=== PATIENT | male | born 1965 | race American Indian/Alaskan Native ===

== ENCOUNTER 2018-07-24 10:59 | Emergency (ER) | payer MEDICAID ==
[2018-07-24 11:03] VITALS: BMI 25.7
[2018-07-24 11:05] VITALS: O2SAT 100
--- NOTE | 2018-07-24 12:19 | CT ---
Date of service: 07/24/2018 PROCEDURE: CT HEAD WITHOUT CONTRAST. HISTORY: seizure activity COMPARISON: None available. TECHNIQUE: Axial computed tomography images were obtained through the head/brain without intravenous contrast. Radiation dose: Total exam DLP = 764.21 mGy-cm. This CT exam was performed using one or more of the following dose reduction techniques: Automated exposure control, adjustment of the mA and/or kV according to patient size, and/or use of iterative reconstruction technique. FINDINGS: HEMORRHAGE: No intracranial hemorrhage. BRAIN: No mass effect or edema. Mild ventricular dilatation. 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 Mild atrophy. VENTRICLES: Unremarkable. No hydrocephalus. CALVARIUM: Unremarkable. PARANASAL SINUSES: Unremarkable as visualized. No significant inflammatory changes. MASTOID AIR CELLS: Unremarkable as visualized. No inflammatory changes. OTHER FINDINGS: None. IMPRESSION: Mild ventricular dilatation. 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 Mild atrophy. No acute hemorrhage.
--- NOTE | 2018-07-24 12:48 | CARD ---
APPROVED REPORT Date of service: 07/24/2018 EKG Measurement Heart [id number] <Conclusion> Normal sinus rhythm Minimal voltage criteria for LVH, may be normal variant Borderline ECG
--- NOTE | 2018-07-24 13:05 | ED PDOC ---
HPI: Seizure Time Seen by Provider: 07/24/18 11:16 Chief Complaint (Nursing): Seizure Chief Complaint (Provider): Seizure History Per: Patient History/Exam Limitations: no limitations Recent Seizure Activity Began: Just Before Arrival Length Of Seizures (Duration): Unknown Quality Of Seizure: Generalized Associated Symptoms: denies: Bit Tongue, Incontinence Of Urine, Incontinence Of Stool, Injury As A Result Of Seizure Activity Additional Complaint(s): 52yo male, brought to ER by police for evaluation due to seizure like activity. Per patient, her remembers "shaking" and his girlfriend told him it "looked like siezures." Patient states he is able to recollect the "shaking" and denies any post-ictal period; also denies any bowel/bladder incontinence or tongue bite. Patient does state he has a history of multiple strokes and states after the last stroke, he had residual right arm weakness. He also admits to heroin and alcohol abuse. Patient states he is unsure if someone called 911 (patient arrived accompanied by police not EMS). No additional complaints. NIHSS Stroke Scale - Date/Time Evaluation Performed Date Performed: 07/24/18 Time Performed: 11:16 When Was NIHSS Performed: Baseline - How Severe is the Stroke Level of Consciousness: 0=Alert LOC to Questions: 0=Both comments correct LOC to commands: 0=Obeys both correctly Best Gaze: 0=Normal Visual: 0=No visual loss Facial: 0=Normal Motor Arm - Left: 0=No drift Motor Arm - Right: 0=No drift Motor Leg - Left: 0=No drift Motor Leg - Right: 0=No drift Limb Ataxia: 0=Absent Sensory: 0=Normal Best Language: 0=No aphasia Dysarthia: 0=Normal articulation Extinction & Inattention (Neglect): 0=Normal, no object Score: 0 Past Medical History Reviewed: Historical Data, Nursing Documentation, Vital Signs Vital Signs: Last Vital Signs Temp 98.1 F 07/24/18 11:03 Pulse 84 07/24/18 11:03 Resp 17 07/24/18 11:03 BP 183/113 H 07/24/18 11:03 Pulse Ox 100 07/24/18 11:03 - Medical History PMH: COPD, HTN, TIA - Surgical History Surgical History: No Surg Hx - Family History Family History: States: No Known Family Hx - Social History Current smoker - smoking cessation education provided: No Alcohol: Other (hx of alcohol abuse) Drugs: Opiates - Allergies Allergies/Adverse Reactions: Allergies Allergy/AdvReac Type Severity Reaction Status Date / Time No Known Allergies Allergy Verified 07/24/18 11:21 Review of Systems ROS Statement: Except As Marked, All Systems Reviewed And Found Negative Constitutional: Negative for: Fever, Chills Cardiovascular: Negative for: Chest Pain Respiratory: Negative for: Shortness of Breath Genitourinary Male: Negative for: Incontinence Neurological: Positive for: Seizures Physical Exam - Reviewed Nursing Documentation Reviewed: Yes Vital Signs Reviewed: Yes - Physical Exam Appears: Positive for: Non-toxic, No Acute Distress (disheveled; foul smelling) Head Exam: Positive for: ATRAUMATIC, NORMAL INSPECTION, NORMOCEPHALIC Skin: Positive for: Normal Color Eye Exam: Positive for: Normal appearance, EOMI, PERRL Neck: Positive for: Normal, Supple Cardiovascular/Chest: Positive for: Regular Rate, Rhythm Respiratory: Positive for: Normal Breath Sounds Gastrointestinal/Abdominal: Positive for: Normal Exam, Soft Back: Positive for: Normal Inspection Extremity: Positive for: Normal ROM. Negative for: Deformity Neurologic/Psych: Positive for: Alert, Oriented, Gait (steady). Negative for: Motor/Sensory Deficits - Laboratory Results Result Diagrams: 07/24/18 12:40 07/24/18 12:40 - ECG O2 Sat by Pulse Oximetry: 100 (RA) Pulse Ox Interpretation: Normal Medical Decision Making Medical Decision Makinyo male, hx of TIA comes in with new onset seizures; low suspicion due to patient recollection of event and no post-ictal state R/o stroke, based on hx of non-compliance with medication and lifestyle changes Plan: -- Labs -- CXR -- CT head w/o contrast 1230 CT Head FINDINGS: HEMORRHAGE: No intracranial hemorrhage. BRAIN: No mass effect or edema. Mild ventricular dilatation. 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 Mild atrophy. VENTRICLES: Unremarkable. No hydrocephalus. CALVARIUM: Unremarkable. PARANASAL SINUSES: Unremarkable as visualized. No significant inflammatory changes. MASTOID AIR CELLS: Unremarkable as visualized. No inflammatory changes. OTHER FINDINGS: None. IMPRESSION: Mild ventricular dilatation. 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 Mild atrophy. No acute hemorrhage. 1550 CT reviewed, no acute injuries. Patient has remained asymptomatic and ambulatory, and tolerated PO intake while in ER. Patient states his last alcohol use was yesterday and last heroin use was 2 days ago. He had also reported withdrawal symptoms, and librium was given. Patient has history of hypertension, states he missed his dose of lisinopril today. Patient given lisinopril, and repeat blood pressure check shows improvement in blood pressure. Patient states his has all his medications and does not need refills at this time; patient declines referral for rehabilitation. Patient given return parameters, including stroke and seizure like symptoms, chest pain, dizziness and weakness. Patient expresses understanding of all instructions. Stable for discharge home. Scribe Attestation: Documented by Prudence Landeros acting as a scribe for Chitra Mckeon MD Provider Attestation: All medical record entries made by the Scribe were at my direction and personally dictated by me. I have reviewed the chart and agree that the record accurately reflects my personal performance of the history, physical exam, medical decision making, and the department course for this patient. I have also personally directed, reviewed, and agree with the discharge instructions and disposition. Disposition - Clinical Impression Clinical Impression: Altered mental status, unspecified, Atypical seizure - Disposition Disposition: Routine/Home Disposition Time: 16:00 Condition: IMPROVED Additional Instructions: Seek professional help for drug and alcohol abuse. If you develop weakness, numbness, chest pain, confusion, or other new symptoms, return to the emergency department. Continue to take blood pressure medications as prescribed by your primary doctor. Instructions: Altered Mental Status (DC) Forms: [employer] ([employer]) Print Language: FAROESE
[2018-07-24 13:11] LABS: BASO % 0.6 % (0.0-2.0); EOS % 0.4 % (0.0-4.0); HEMOGLOBIN 12.7 g/dL (12.0-18.0); LYMPH # 1.1 K/uL (1.0-4.3); LYMPH % 14.5 % (20.0-40.0); MEAN CORPUSCULAR HEMOGLOBIN 30.8 pg (27.0-31.0); MEAN CORPUSCULAR HGB CONC 34.2 g/dL (33.0-37.0); MEAN PLATELET VOLUME 7.6 fl (7.2-11.7); MONO # 0.7 K/uL (0.0-0.8); MONO % 9.6 % (0.0-10.0); NEUT # 5.8 K/uL (1.8-7.0); NEUT % 74.9 % (50.0-75.0); RBC 4.14 Mil/uL (4.40-5.90); RED CELL DISTRIBUTION WIDTH 13.7 % (11.5-14.5); WHITE BLOOD COUNT 7.7 K/uL (4.8-10.8)
[2018-07-24 13:32] LABS: BLOOD UREA NITROGEN 6 mg/dl (9-20); CALCIUM 9.4 mg/dL (8.4-10.2); GFR NON-AFRICAN AMERICAN > 60
[2018-07-24 14:32] VITALS: RESP 18; TEMP 99.2
[2018-07-24 14:42] VITALS: PULSE 83
[2018-07-24 15:24] LABS: OPIATES, UR NEGATIVE (NEGATIVE)
[2018-07-24 15:28] LABS: BARBITURATES, UR NEGATIVE (NEGATIVE); BENZODIAZEPINES, UR NEGATIVE (NEGATIVE); PHENCYCLIDINE, UR NEGATIVE (NEGATIVE)
[2018-07-24 15:29] VITALS: BP 145/89
--- NOTE | 2018-07-24 16:59 | RAD ---
Date of service: 07/24/2018 HISTORY: possible admission COMPARISON: No prior. FINDINGS: LUNGS: No active pulmonary disease. PLEURA: No significant pleural effusion identified, no pneumothorax apparent. CARDIOVASCULAR: No aortic atherosclerotic calcification present. Normal cardiac size. No pulmonary vascular congestion. OSSEOUS STRUCTURES: No significant abnormalities. VISUALIZED UPPER ABDOMEN: Normal. OTHER FINDINGS: None. IMPRESSION: No acute cardiopulmonary disease appreciated.
== END 2018-07-24 16:50 | disposition home or self-care (01) ==
LOC: H.ER 10:59
DX: R41.82 Altered mental status, unspecified (principal); R56.9 Unspecified convulsions; I10 Essential (primary) hypertension; Z86.73 Personal history of transient ischemic attack (TIA), and cerebral infarction without residual deficits
CPT/HCPCS: 70450; 71045; 80048; 85025; 93005; 99285; G0480